=== PATIENT | male | born 1960 | race Caucasian/White ===

== ENCOUNTER 2018-12-01 06:56 | Day surgery (SDC) | payer BC ==
[~2018-12-01] VITALS: Ht 157.5 cm; Wt 51.3 kg
[2018-12-01] MEDS ORDERED: IODIXANOL 320MG/ML 100ML BTL IV ONE ×2 (07:24→08:09)
[2018-12-01] MEDS ORDERED: LIDOCAINE 2%HCL (LOCAL ANESTH.) INJ 20ML MDV ONE (07:24)
[2018-12-01] MEDS ORDERED: MIDAZOLAM HCL 1MG/1ML-2 ML VIAL ONE (07:47)
[2018-12-01] MEDS ORDERED: VERAPAMIL 2.5MG/ML INJ 2ML VIAL IV ONE (07:47)
[2018-12-01] MEDS ORDERED: ANGIOMAX 250 MG VIAL IV ONE (07:47)
[2018-12-01] MEDS ORDERED: SODIUM CHL 0.9% 0 ML ONE (07:47)
[2018-12-01] MEDS ORDERED: fentaNYL CITRATE 100 MCG/2 ML VL ONE (07:47)
[2018-12-01] MEDS ORDERED: HEPARIN SODIUM (PORCINE) 5000 UNITS/ML 1ML VIAL ONE (08:28)
== END 2018-12-01 10:25 | disposition home or self-care (01) ==
LOC: CATH 06:56
PROVIDERS: ATTEND Internal Medicine
DX: I25.10 Atherosclerotic heart disease of native coronary artery without angina pectoris (principal); R94.30 Abnormal result of cardiovascular function study, unspecified; I73.9 Peripheral vascular disease, unspecified; E16.2 Hypoglycemia, unspecified; I10 Essential (primary) hypertension; F17.210 Nicotine dependence, cigarettes, uncomplicated; F64.0 Transsexualism; Z21 Asymptomatic human immunodeficiency virus [HIV] infection status; Z88.0 Allergy status to penicillin; Z98.890 Other specified postprocedural states; Z79.899 Other long term (current) drug therapy; Z90.49 Acquired absence of other specified parts of digestive tract; Z82.49 Family history of ischemic heart disease and other diseases of the circulatory system
CPT/HCPCS: 93005; 93458; C1769; C1894; J1644; J2250; J3010; J7030; Q9967; 99152; 99153